=== PATIENT | female | born 1960 | race African-American/Black ===

== ENCOUNTER 2022-02-17 03:15 | Emergency (ER) | payer SELFPAY ==
[~2022-02-17] VITALS: Ht 157.5 cm; Wt 56.7 kg
[2022-02-17] MEDS ORDERED: PROVENTIL HFA6.7 GM INH (04:20)
== END 2022-02-17 06:05 | disposition home or self-care (01) ==
LOC: ER 03:30
DX: R06.00 Dyspnea, unspecified (principal); J44.9 Chronic obstructive pulmonary disease, unspecified; R94.31 Abnormal electrocardiogram [ECG] [EKG]; F17.210 Nicotine dependence, cigarettes, uncomplicated
CPT/HCPCS: 71045; 93005; 99284